=== PATIENT | male | born 1970 | race Caucasian/White ===

== ENCOUNTER 2016-09-25 17:31 | Emergency (ER) | payer OTHER ==
--- NOTE | 2016-09-25 17:50 | ED Physician Documentation ---
General Adult - HISTORIAN Historian: patient - HPI Stated Complaint: abd pain, vomiting Chief Complaint: General Adult Onset: hours Timing: still present Severity: moderate Further Comments: yes (Pt is a 45 yo male with hx Hep C, diverticulitis, arthritis, who has abd pain that started in the R side of his back and radiated around flanks on both sides to his abdomen. The pain comes and goes. Pt vomited x 4. Pt had a liver bx last month but had been well in the interval since then. Pt is a heavy smoker. Pt has hx kidney stone. Pt has had a cholecystectomy.) - ROS CONST: weakness EYES/ENT: none CVS/RESP: none GI/: abdominal pain, problems urinating (retention), vomiting, nausea MS/SKIN/LYMPH: none - PAST HX Past History: other (Hep C; diverticulitis; Arthritis; kidney stone; heavy smoker; hyperhydrosis.) Allergies/Adverse Reactions: Allergies Allergy/AdvReac Type Severity Reaction Status Date / Time No Known Allergies Allergy Verified 02/09/16 18:36 Home Medications: Ambulatory Orders Medication Instructions Recorded Cephalexin [Keflex] 500 mg PO TID #21 capsule 02/09/16 clonazePAM [Klonopin] 1 mg PO HS PRN 02/09/16 predniSONE [Deltasone] 10 mg PO DAILY 02/09/16 - SOCIAL HX Smoking History: cigarettes Drug Use: marijuana - FAMILY HX Family History: No - VITAL SIGNS Vital Signs: Vital Signs Temp Pulse Resp BP Pulse Ox 136/78 02/09/16 19:49 - REVIEWED ASSESSMENTS Nursing Assessment Reviewed: Yes Vitals Reviewed: Yes Progress - Progress Progress: NS IVF 1 L X 2 Zofran 4 mg IV Dilaudid 1 mg IV X 2 CT abd/pelvis w iv contrast: 1. left colonic diverticulosis without diverticulitis. 2. cholecystectomy. 3. normal appendix. 4. small r inguinal hernia which contains fat. General Adult Physical Exam - PHYSICAL EXAM GENERAL APPEARANCE: moderate distress EENT: pharynx normal NECK: normal inspection, supple RESPIRATORY: no resp distress, chest non-tender, breath sounds normal CVS: reg rate & rhythm, heart sounds normal ABDOMEN: soft, no organomegaly, tenderness (generalized moderate tenderness), decreased BS BACK: normal inspection, no CVA tenderness SKIN: warm/dry, normal color EXTREMITIES: non-tender, normal range of motion, no evidence of injury NEURO: oriented X3, motor nml, sensation nml Discharge Clincal Impression: small inguinal hernia, Dehydration, Ketonuria Abdominal pain Qualifiers: Abdominal location: generalized Qualified Code(s): R10.84 - Generalized abdominal pain Constipation Qualifiers: Constipation type: unspecified constipation type Qualified Code(s): K59.00 - Constipation, unspecified Referrals: SARAH HILL MD [Primary Care Provider] - Home Medications: Ambulatory Orders Cephalexin [Keflex] 500 mg PO TID #21 capsule 02/09/16 clonazePAM [Klonopin] 1 mg PO HS PRN 02/09/16 predniSONE [Deltasone] 10 mg PO DAILY 02/09/16 Condition: Stable Disposition: HOME, SELF-CARE Decision to Admit: NO Decision Time: 21:39
[2016-09-25] MEDS ORDERED: ONDANSETRON HCL/PF 4 MG/ 2ML VIAL IVP ONE (17:54)
[2016-09-25] MEDS ORDERED: 0.9 % SODIUM CHLORIDE 1,000 ML IV ONE ×3 (17:55→21:42)
[2016-09-25] MEDS ORDERED: ONDANSETRON HCL/PF 4 MG/ 2ML VIAL ONE (17:56)
[2016-09-25] MEDS ORDERED: HYDROmorphone HCL/PF 1 MG/ML DISP.SYRIN IVP ONE ×2 (18:08→20:39)
[2016-09-25 18:09] LABS: BASOPHILS % 0.7 (0.0-1.5); EOSINOPHILS % 1.9 % (0.0-6.8); MEAN CORPUSCULAR HEMOGLOBIN 31.9 pg (28.0-34.0); MEAN CORPUSCULAR VOLUME 93.5 fl (80.0-100.0); MONOCYTES % 4.2 % (0.0-11.0); NEUTROPHILS # 8.6 # k/uL (1.4-7.7)
[2016-09-25 18:20] LABS: eGFR (African) > 60; eGFR (Non-African) > 60
[2016-09-25 20:35] LABS: APPEARANCE,URINE CLEAR (CLEAR); COLOR,URINE AMBER (YELLOW); OCCULT BLOOD,URINE NEGATIVE (NEGATIVE)
[2016-09-25 22:43] VITALS: BP 132/74
--- NOTE | 2016-09-26 00:14 | Diagnostic Imaging Report ---
INDIA MENDEZ~ [facility] [address] [facility] [address] [place], [place]. [address] ~ ~ ~ ~ Report Submission Date: September 25, 2016 9:21:13 PM CDT Patient ~ Study Name: LORENZO SHER ~ Date: September 25, 2016 8:55:10 PM CDT ~ Modality Type: CT\SR Gender: M ~ Description: CT ABD & PELVIS W/ CON : 70 ~ Institution: [facility] Physician: INDIA MENDEZ ~ ~ ~ ~ Computed tomography of the abdomen and pelvis with contrast History: Abdominal pain, nausea, vomiting, kidney stones, and liver biopsy less month Findings: Transverse abdomen and pelvis sections are obtained after 90 mL intravenous omnipaque 350. The liver, spleen, pancreas, adrenals, kidneys, great vessels, and mesenteric structures are normal. Cholecystectomy has been performed. Bowel loops exhibit normal caliber and wall thickness. A few descending colon diverticula are present. Pelvic sections reveal sigmoid diverticulosis without diverticulitis. The appendix is normal. The urinary bladder is decompressed. A small right inguinal hernia contains fat. The prostate and seminal vesicles are unremarkable. Impression: 1. Left colonic diverticulosis without diverticulitis. 2. Cholecystectomy. 3. Normal appendix. 4. Small right inguinal hernia. ~ Electronically signed on September 25, 2016 9:21:13 PM CDT by: Mesfin DOHERTY
== END 2016-09-25 22:42 | disposition home or self-care (01) ==
LOC: ED 17:31
DX: K40.90 Unilateral inguinal hernia, without obstruction or gangrene, not specified as recurrent (principal); E86.0 Dehydration; R82.4 Acetonuria; K59.00 Constipation, unspecified
CPT/HCPCS: 74177; 80053; 81002; 82150; 85025; J1170; J2405; J7030; 96361; 96374; 96375; 96376; 99284; S1016

== ENCOUNTER 2017-05-13 08:45 | Emergency (ER) | payer OTHER ==
[2017-05-13 09:05] VITALS: BP 110/87
[2017-05-13] MEDS: 0.9 % SODIUM CHLORIDE 1,000 ML IV ONE (09:10)
[2017-05-13 09:21] LABS: BASOPHILS % 3.4 (0.0-1.5); EOSINOPHILS % 1.8 % (0.0-6.8); MEAN CORPUSCULAR HEMOGLOBIN 30.6 pg (28.0-34.0); MEAN CORPUSCULAR VOLUME 90.8 fl (80.0-100.0); MONOCYTES % 9.4 % (0.0-11.0); NEUTROPHILS # 3.6 # k/uL (1.4-7.7)
--- NOTE | 2017-05-13 09:22 | ED Physician Documentation ---
Nausea/Vomiting/Diarrhea - HISTORIAN Historian: patient - HPI Stated Complaint: N/V/D Chief Complaint: Nausea,Vomiting,Diarrhea Onset: days ago (3-4) Duration: waxing, waning Timing: gradual onset Context: denies: out of country travel, bad food, recent trauma Severity: moderate Further Comments: yes (46 year old male patient presents with complaint of nausea, vomiting and multiple episodes of diarrhea for the past 3-4 days.) - ROS CONST: none CVS/RESP: cough GI/: none EYES/ENT: sore throat - PAST HX Past History: other (Chronic back pain, Hep C) Surgeries/Procedures: cholecystectomy Allergies/Adverse Reactions: Allergies Allergy/AdvReac Type Severity Reaction Status Date / Time No Known Allergies Allergy Verified 05/13/17 09:06 Home Medications: Ambulatory Orders Medication Instructions Recorded Naproxen [Naprosyn] 250 mg PO DAILY 05/13/17 Omeprazole [Omeprazole] 20 mg PO BID 05/13/17 - SOCIAL HX Smoking History: cigarettes - FAMILY HX Family History: denies: none - VITAL SIGNS Vital Signs: Vital Signs Temp Pulse Resp BP Pulse Ox 96.2 F L 119 H 19 110/87 97 05/13/17 08:50 05/13/17 08:50 05/13/17 08:50 05/13/17 08:50 05/13/17 08:50 - REVIEWED ASSESSMENTS Nursing Assessment Reviewed: Yes Vitals Reviewed: Yes Progress - Progress Progress: Patient given IV fluids and zofran in ER. Reviewed lab No vomiting or diarrhea while in Er ED Results Lab/Radiology - Lab Results Lab Results: Lab Results 05/13/17 05/13/17 09:15 09:15 WBC 5.50 K/ul K/ul (4.00-12.00) RBC 5.87 M/ul H M/ul (3.90-5.20) Hgb 17.9 g/dL g/dL (12.0-18.0) Hct 53.3 % H % (37.0-53.0) MCV 90.8 fl fl (80.0-100.0) MCH 30.6 pg pg (28.0-34.0) MCHC 33.7 g/dL g/dL (30.0-36.0) RDW 13.2 % % (11.3-14.3) Plt Count 217 K/mm3 K/mm3 (130-400) Neut % (Auto) 65.9 % % (39.0-79.0) Lymph % (Auto) 16.5 % % (16.0-50.0) Mcduffie % (Auto) 9.4 % % (0.0-11.0) Eos % (Auto) 1.8 % % (0.0-6.8) Baso % (Auto) 3.4 H (0.0-1.5) Neut # (Auto) 3.6 # k/uL # k/uL (1.4-7.7) Lymph # (Auto) 0.9 # k/uL # k/uL (0.6-4.0) [place]duffie # (Auto) 0.5 # k/uL # k/uL (0.0-0.9) Eos # (Auto) 0.1 # k/uL # k/uL (0.0-0.6) Baso # (Auto) 0.2 # k/uL # k/uL (0.0-0.5) Reactive Lymphs % 3.0 % % (0.0-5.0) Reactive Lymphs # 0.2 # k/uL # k/uL (0.0-0.8) Sodium 141 mmol/L mmol/L (136-145) Potassium 3.5 mmol/L mmol/L (3.5-5.1) Chloride 106 mmol/L mmol/L (98-107) Carbon Dioxide 20 mmol/L L mmol/L (22-30) BUN 19 mg/dL mg/dL (9-20) Creatinine 1.20 mg/dL mg/dL (0.66-1.25) Estimated Creat Clear 93 Est GFR ( Amer) > 60 (60 - ) Est GFR (Non-Af Amer) > 60 (60 - ) Glucose 121 mg/dL H mg/dL (74-106) Calcium 9.3 mg/dL mg/dL (8.4-10.2) Total Bilirubin 0.5 mg/dL mg/dL (0.2-1.3) AST 30 U/L U/L (15-46) ALT 38 U/L U/L (13-69) Alkaline Phosphatase 117 U/L U/L (38-126) Total Protein 8.6 g/dL H g/dL (6.3-8.2) Albumin 4.7 g/dL g/dL (3.5-5.0) - Orders Orders: ED Orders Category Date Time Status Place IV Lock 1T Care 05/13/17 09:02 Active CBC/PLATELET/DIFF Stat Lab 05/13/17 09:15 Completed CMP Stat Lab 05/13/17 09:15 Completed INFLUENZA A&B Stat Lab 05/13/17 09:02 Ordered UA W/MICRO IF INDICATED Stat Lab 05/13/17 09:03 Ordered 0.9 % Sodium Chloride [Normal Saline] 1,000 ml Med 05/13/17 09:02 Discontinued IV NOW Ondansetron HCl/Pf [Zofran 4 mg/2 ml] Med 05/13/17 09:02 Discontinued 4 mg IVP NOW ONE Nausea Physical Exam - EXAM General Appearance: no acute distress, alert EENT: eye inspection normal, ENT inspection normal, pharynx normal, no signs of dehydration, SVITLANA, no nystagmus, TM's nml Respiratory: no resp distress, chest non-tender, breath sounds normal CVS: reg rate & rhythm, heart sounds normal, equal pulses, no murmur, no gallop , PMI nml, no JVD, no friction rub, 24 Abdomen: no organomegaly, tenderness (at umbilicus) Skin: normal color, warm/dry, NR, INT, PAL, DR Extremities: non-tender, normal range of motion, no evidence of injury, no edema , J, [employer] Neuro/Psych: oriented X3, CN's nml as tested, motor nml, sensation nml, mood/ affect nml Discharge Clincal Impression: Abdominal pain Qualifiers: Abdominal location: periumbilical Qualified Code(s): R10.33 - Periumbilical pain Nausea & vomiting Qualifiers: Vomiting type: unspecified Vomiting Intractability: non-intractable Qualified Code(s): R11.2 - Nausea with vomiting, unspecified Clincal Impression: (Ruled Out): Rhinorrhea, Sore throat (viral) Referrals: SARAH HILL MD [Primary Care Provider] - 2 Days Additional Instructions: Diet: Clear liquids Sprite/7-up Juices apple, white grape Gatorade/Powerade Jello Popsicles When tolerating clear liquids, advance to bland/brat diet - such as crackers, rice, Bananas, apples/applesauce or toast Return to the emergency department or call your doctor, if you are having severe abdominal pain, fever >101.0, or if there is blood in the vomit or diarrhea, or you cannot keep down liquids or solid food. Fever: Use Tylenol or Ibuprofen as needed per package directions Tylenol 500mg po q4h prn pain Ibuprofen 800mg po TID prn pain - do not take for more than 4 days. Condition: Stable Disposition: 01 HOME, SELF-CARE Decision to Admit: NO Decision Time: 09:47
[2017-05-13] MEDS: ONDANSETRON HCL/PF 4 MG/ 2ML VIAL IVP ONE (09:35)
[2017-05-13 09:36] LABS: eGFR (African) > 60; eGFR (Non-African) > 60
== END 2017-05-13 10:19 | disposition home or self-care (01) ==
LOC: ED 08:45
DX: R10.33 Periumbilical pain (principal); R11.2 Nausea with vomiting, unspecified
CPT/HCPCS: 80053; 85025; 87400; 96360; 96375; 99283; J2405; J7030; S1016